=== PATIENT | male | born 2005 | race African-American/Black ===

== ENCOUNTER 2024-03-24 19:31 | Emergency (ER) | payer BC ==
--- NOTE | 2024-03-24 20:33 | RAD REPORT ---
EXAM DESCRIPTION: CT - Head Brain Wo Cont - 03/24/2024 8:27 pm CLINICAL HISTORY: SYNCOPE COMPARISON: No comparisons TECHNIQUE: All CT scans are performed using dose optimization technique as appropriate and may inclu de automated exposure control or mA/KV adjustment according to patient size. FINDINGS: No intracranial hemorrhage, hydrocephalus or extra-axial fluid collection.No areas of brai n edema or evidence of midline shift. The paranasal sinuses and mastoids are clear. The calvarium is intact. IMPRESSION: No acute intracranial abnormality.
[2024-03-24 21:41] LABS: Absolute Basophils 0.1 K/uL (0-0.5); Absolute Eosinophils 0.1 K/uL (0-0.5); Absolute Lymphocytes (CBC) 1.6 K/uL (0.7-4.9); Absolute Monocytes 0.6 K/uL (0.1-1.3); Absolute Neutrophil 10.4 K/uL (1.8-8.0); Basophils % 0.4 % (0-1.3); Eosinophils % 0.7 % (0-4.4); Hematocrit 42.3 % (39.6-49.0); Hemoglobin 14.2 g/dL (13.6-17.9); Lymphocytes % 12.4 % (15.3-44.8); MCH 31.1 pg (27.0-35.0); MCHC 33.7 g/dL (32.0-36.0); MCV 92.2 fL (80-100); MPV 8.8 fL (7.6-11.3); Neutrophils % 81.5 % (41.7-73.7); Platelets 304 thou/uL (152-406); RBC Red Blood Cell Count 4.59 M/uL (4.33-5.43); Red Cell Distribution Width 13.4 % (12.1-15.2)
[2024-03-24 21:47] LABS: PT Prothrombin Time 13.4 SECONDS (9.4-12.5); PTT, Activated Partial Thromb 33.1 SECONDS (24.3-36.9); Protime INR 1.2
[2024-03-24 21:56] LABS: ALT/SGPT 25 U/L (16-61); AST/SGOT 15 U/L (15-37); Albumin 3.8 g/dL (3.4-5.0); Alkaline Phosphatase 51 U/L (45-117); Anion Gap 8.3 mEq/L (5.0-15.0); BUN Blood Urea Nitrogen 13 mg/dL (7-18); Bicarbonate 27 mEq/L (21-32); Bilirubin Direct 0.2 mg/dL (0-0.2); Bilirubin Indirect, Calculated 0.1 mg/dL (0.2-0.8); Bilirubin Total 0.3 mg/dL (0.2-1.0); Globulin 3.8 g/dL (2.3-3.5); Glomerular Filtration Rate 103 ml/min (=/>90); Glucose Level 101 mg/dL (74-106); Magnesium 2.5 mg/dL (1.6-2.4); Potassium 4.3 mEq/L (3.5-5.1); Protein, Total 7.6 g/dL (6.4-8.2); Sodium Level 140 mEq/L (136-145); Troponin High Sensitivity < 3.0 pg/mL (<58.9)
--- NOTE | 2024-03-24 22:45 | EDPHYS ---
Physician Documentation [facility] Name: Jose Chadwick Age: 19 yrs Sex: Male : 2005 Arrival Date: 03/24/2024 Time: 19:31 Bed 15 Private MD: ED Physician Jeremie Diaz HPI: 03/24 20:38 This 19 yrs old Black Male presents to ER via Wheelchair with complaints of Probable kb Seizure, Syncope. 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 Bystanders report the patient collapsed to the ground but states he did not hit his head. Patient states is never happened before. Denies chest pain, dizziness, diaphoresis, lightheadedness. States he felt just fine prior to the syncopal episode and is back to normal now.. Historical: - Allergies: 19:46 Latex, Natural Rubber; nj1 - PSHx: 19:46 Exploratory laparotomy; nj1 - Immunization history:: Client reports receiving the 2nd dose of the Covid vaccine. - Infectious Disease History:: Denies. - Social history:: Smoking status: Patient denies any tobacco usage or history of. ROS: 20:38 Constitutional: As per HPI kb Exam: 20:38 Constitutional: This is a well developed, well nourished patient who is awake, alert, kb and in no acute distress. Head/Face: Normocephalic, atraumatic. Eyes: Pupils equal round and reactive to light, extra-ocular motions intact. Lids and lashes normal. Conjunctiva and sclera are non-icteric and not injected. Cornea within normal limits. Periorbital areas with no swelling, redness, or edema. ENT: Moist Mucous membranes Cardiovascular: Regular rate Respiratory: Respirations even and unlabored. No increased work of breathing. Talking in full sentences Abdomen/GI: Soft, non-tender. No distention Skin: Warm, dry with normal turgor. Normal color. MS/ Extremity: Pulses equal, no cyanosis. Neurovascular intact. Full, normal range of motion. Neuro: Awake and alert, GCS 15, oriented to person, place, time, and situation. Moves all extremities. Normal gait. 20:39 ECG was reviewed by the Attending Physician. kb Vital Signs: 19:44 BP 129 / 76; Pulse 86; Resp 18; Temp 99.3(O); Pulse Ox 96% on R/A; Weight 127.01 kg; nj1 Height 5 ft. 8 in. ; 21:30 BP 127 / 74; Pulse 74; Resp 16 S; Pulse Ox 98% on R/A; jw7 22:30 BP 118 / 75; Pulse 65; Resp 16 S; Pulse Ox 98% on R/A; jw7 19:44 Body Mass Index 42.57 (127.01 kg, 172.72 cm) - Percentile 99.7 % nj1 Ana Coma Score: 19:47 Eye Response: spontaneous(4). Motor Response: obeys commands(6). Verbal Response: nj1 oriented(5). Total: 15. MDM: 19:41 Patient medically screened. kb 20:38 Data reviewed: vital signs, nurses notes. kb 22:42 Differential diagnosis: seizure, syncope. Historians other than the Patient: Friend: taya coworker. Counseling: I had a detailed discussion with the patient and/or guardian regarding the historical points, exam findings, and any diagnostic results supporting the discharge/admit diagnosis, lab results, radiology results, the need for outpatient follow up, a family practitioner, to return to the emergency department if symptoms worsen or persist or if there are any questions or concerns that arise at home. 03/24 19:52 Order name: Basic Metabolic Panel; Complete Time: 22:08 kb 03/24 19:52 Order name: CBC with Diff; Complete Time: 21:54 kb 03/24 19:52 Order name: Hepatic Function; Complete Time: 22:08 kb 03/24 19:52 Order name: Magnesium; Complete Time: 22:08 kb 03/24 19:52 Order name: Protime (+inr); Complete Time: 21:54 kb 03/24 19:52 Order name: Ptt, Activated; Complete Time: 21:54 kb 03/24 19:52 Order name: Troponin High Sensitivity; Complete Time: 22:08 kb 03/24 19:52 Order name: CT Head Brain wo Cont; Complete Time: 20:37 kb 03/24 19:52 Order name: Cardiac monitoring; Complete Time: 21:41 kb 03/24 19:52 Order name: EKG - Nurse/Tech; Complete Time: 21:41 kb 03/24 19:52 Order name: IV Saline Lock; Complete Time: 21:41 kb 03/24 19:52 Order name: Labs collected and sent; Complete Time: 21:41 kb 03/24 19:52 Order name: NPO; Complete Time: 21:08 kb 03/24 19:52 Order name: O2 Per Protocol; Complete Time: 21:41 kb 03/24 19:52 Order name: O2 Sat Monitoring; Complete Time: 21:41 kb EC:39 Rate is 84 beats/min. Rhythm is regular. QRS [place] is Normal. [place] interval is normal at kb 170 msec. QRS interval is normal at 86 msec. QT interval is normal at 401 msec. Administered Medications: No medications were administered Disposition Summary: 03/24/24 22:44 Discharge Ordered Notes: Location: Home kb Condition: Stable kb Diagnosis - Syncope kb Followup: kb - With: Emergency Department - When: As needed - Reason: Worsening of condition Followup: kb - With: Private Physician - When: 2 - 3 days - Reason: Recheck today's complaints, Continuance of care, Re-evaluation by your physician Discharge Instructions: - Discharge Summary Sheet kb - Syncope, [id number] kb Forms: - Medication Reconciliation Form kb - Antibiotic Education kb - Prescription Opioid Use kb - Patient Portal Instructions kb - Leadership Thank You Letter kb Signatures: Dispatcher [employer] EDConnie Cooney, REMOTE SENSING ENGINEER-C REMOTE SENSING ENGINEER-Chastity Ordoñez, RN RN nj1 Corrections: (The following items were deleted from the chart) 19:53 19:53 BASIC METABOLIC PANEL+C.LAB.BRZ ordered. EDMS EDMS 19:53 19:53 CBC+H.LAB.BRZ ordered. EDMS EDMS 19:53 19:53 HEPATIC FUNCTION+C.LAB.BRZ ordered. EDMS EDMS 19:53 19:53 MAGNESIUM+C.LAB.BRZ ordered. EDMS EDMS 19:53 19:53 PROTIME (+INR)+COAG.LAB.BRZ ordered. EDMS EDMS 19:53 19:53 PTT, ACTIVATED+COAG.LAB.BRZ ordered. EDMS EDMS 19:53 19:53 Troponin High Sensitivity+C.LAB.BRZ ordered. EDMS EDMS 19:53 19:53 Head Brain Wo Cont+CT.RAD.BRZ ordered. EDMS EDMS 23:03 19:52 Orthostatics ordered. kb jw7
--- NOTE | 2024-03-24 22:45 | ER ---
Nurse's Notes [facility] Name: Jose Chadwick Age: 19 yrs Sex: Male : 2005 Arrival Date: 03/24/2024 Time: 19:31 Bed 15 Private MD: Diagnosis: Syncope Presentation: 03/24 19:44 Chief complaint: Patient states: Syncopal episode. Was at work and blacked out, bp nj1 reported to be low upon staff responding to incident. Did not hit his head per witnesses. Denies pain. Coronavirus screen: Vaccine status: Patient reports receiving the 2nd dose of the covid vaccine. Ebola Screen: Patient denies travel to an Ebola-affected area in the 21 days before illness onset. Initial Sepsis Screen: Does the patient meet any 2 criteria? No. Patient's initial sepsis screen is negative. Does the patient have a suspected source of infection? No. Patient's initial sepsis screen is negative. Risk Assessment: Do you want to hurt yourself or someone else? Patient reports no desire to harm self or others. Onset of symptoms was March 24, 2024. 19:44 Method Of Arrival: Wheelchair [facility] 19:44 Acuity: BETSY 3 nj1 Triage Assessment: 19:47 General: Appears in no apparent distress. comfortable, Behavior is calm, cooperative, nj1 appropriate for age. Pain: Denies pain. Neuro: Level of Consciousness is awake, alert, obeys commands, Oriented to person, place, time, situation. Cardiovascular: Patient's skin is warm and dry. Respiratory: Airway is patent Respiratory effort is even, unlabored. Historical: - Allergies: 19:46 Latex, Natural Rubber; nj1 - PSHx: 19:46 Exploratory laparotomy; nj1 - Immunization history:: Client reports receiving the 2nd dose of the Covid vaccine. - Infectious Disease History:: Denies. - Social history:: Smoking status: Patient denies any tobacco usage or history of. Screenin:00 [facility] ED Fall Risk Assessment (Adult) History of falling in the last 3 months, jw7 including since admission Yes- physiologic fall (2 pts) Confusion or Disorientation No (0 pts) Intoxicated or Sedated No (0 pts) Impaired Gait No (0 pts) Mobility Assist Device Used No (0 pt) Altered Elimination No (0 pt) Score/Fall Risk Level 0 - 2 = Low Risk Oriented to surroundings, Maintained a safe environment, Educated pt \T\ family on fall prevention, incl call for assistance when getting out of bed. Abuse screen: Denies threats or abuse. Denies injuries from another. Nutritional screening: No deficits noted. Tuberculosis screening: No symptoms or risk factors identified. Assessment: 20:00 General: Appears in no apparent distress. comfortable, Behavior is calm, cooperative, jw7 appropriate for age. Pain: Denies pain. Neuro: Level of Consciousness is awake, alert, obeys commands, Oriented to person, place, time, situation, Appropriate for age. Cardiovascular: Heart tones S1 S2 present Capillary refill < 3 seconds Clubbing of nail beds is absent JVD is absent Patient's skin is warm and dry. Respiratory: Airway is patent Trachea midline Respiratory effort is even, unlabored, Respiratory pattern is regular, symmetrical, Breath sounds are clear bilaterally. GI: Abdomen is round non-distended, Bowel sounds present X 4 quads. Abd is soft and non tender X 4 quads. : No deficits noted. No signs and/or symptoms were reported regarding the genitourinary system. EENT: No deficits noted. No signs and/or symptoms were reported regarding the EENT system. Derm: Skin is intact, is healthy with good turgor, Skin is dry, Skin is normal, Skin temperature is warm. Musculoskeletal: Circulation, motion, and sensation intact. Range of motion: intact in all extremities. 21:00 Reassessment: Patient appears in no apparent distress at this time. No changes from jw7 previously documented assessment. Patient and/or family updated on plan of care and expected duration. Pain level reassessed. Patient is alert, oriented x 3, equal unlabored respirations, skin warm/dry/pink. 22:00 Reassessment: Patient appears in no apparent distress at this time. No changes from jw7 previously documented assessment. Patient and/or family updated on plan of care and expected duration. Pain level reassessed. Patient is alert, oriented x 3, equal unlabored respirations, skin warm/dry/pink. Vital Signs: 19:44 BP 129 / 76; Pulse 86; Resp 18; Temp 99.3(O); Pulse Ox 96% on R/A; Weight 127.01 kg; nj1 Height 5 ft. 8 in. ; 21:30 BP 127 / 74; Pulse 74; Resp 16 S; Pulse Ox 98% on R/A; jw7 22:30 BP 118 / 75; Pulse 65; Resp 16 S; Pulse Ox 98% on R/A; jw7 19:44 Body Mass Index 42.57 (127.01 kg, 172.72 cm) - Percentile 99.7 % nj1 Ana Coma Score: 19:47 Eye Response: spontaneous(4). Motor Response: obeys commands(6). Verbal Response: nj1 oriented(5). Total: 15. ED Course: 19:34 Patient arrived in ED. im 19:41 Connie Lou FNP-C [facility] kb 19:41 Jeremie Diaz MD is Attending Physician. kb 19:46 Triage completed. nj1 19:47 Arm band placed on right wrist. nj1 20:00 Patient has correct armband on for positive identification. Bed in low position. Call jw7 light in reach. Provided Education on: use of call light. 20:29 CT Head Brain wo Cont In Process Unspecified. EDMS 21:00 Initial lab(s) drawn, by me, sent to lab. Inserted saline lock: 22 gauge in left jw7 antecubital area, using aseptic technique. Blood collected. Flushed with 10 mL NS. 21:08 Tete Villarreal, RN is Primary Nurse. jw7 22:44 No provider procedures requiring assistance completed. jw7 23:03 IV discontinued, intact, bleeding controlled, No redness/swelling at site. Pressure jw7 dressing applied. Administered Medications: No medications were administered Medication: 22:44 VIS not applicable for this client. jw7 Outcome: 22:44 Discharge ordered by . kb 23:02 Discharged to home ambulatory, jw7 23:02 Condition: stable 23:02 Discharge instructions given to patient, Instructed on discharge instructions, follow up and referral plans. Demonstrated understanding of instructions, follow-up care, 23:03 Patient left the ED. jw7 Signatures: Dispatcher [employer] EDMS Connie Lou FNP-C FNP-Ckb Waits, Jodi RN ROWAN jw7 Chastity Fleming RN RN nj1 Merari Zepeda im
[2024-03-25 10:16] VITALS: TEMP 99.3
[2024-03-25 10:17] VITALS: O2SAT 98
[2024-03-25 10:18] VITALS: BP 118/75
--- NOTE | 2024-03-26 13:11 | EKG ---
Test Date: 2024-03-24 Test Time: 20:32:36 Education Liaison: SHRUTI MEASUREMENT RESULTS: Intervals: Rate: 84 AK: 170 QRSD: 86 QT: 340 QTc: 401 [place]: P: 36 AK: 170 QRS: 76 T: 46 INTERPRETIVE STATEMENTS: Normal sinus rhythm Normal ECG No previous ECG available for comparison Electronically Signed On 03-26-24 13:06:02 CDT by Kody Baxter
== END 2024-03-24 23:03 | disposition home or self-care (01) ==
LOC: ER 19:31
DX: R55 Syncope and collapse (principal)
CPT/HCPCS: 36415; 70450; 80048; 80076; 83735; 84484; 85025; 85610; 85730; 93005; 99284